=== PATIENT | female | born 1995 | race Caucasian/White ===

== ENCOUNTER 2018-03-01 04:22 | Inpatient (IN) | payer OTHER ==
[~2018-03-01] VITALS: Ht 177.8 cm; Wt 63.5 kg
[2018-03-01] MEDS ORDERED: ACETAMINOPHEN 325 MG TABLET ONE (05:14)
[2018-03-01] MEDS ORDERED: DEXAMETHASONE 4 MG TABLET ONE (05:14)
[2018-03-01] MEDS ORDERED: ACETAMINOPHEN 325 MG TABLET PO ONE (05:30)
[2018-03-01] MEDS ORDERED: DEXAMETHASONE 4 MG TABLET PO ONE (05:30)
[2018-03-01 05:32] LABS: MEAN CORPUSCULAR HEMOGLOBIN 29.1 pg (27.0-34.8); MEAN CORPUSCULAR HGB CONC 33.2 g/dL (32.4-35.8); MEAN CORPUSCULAR VOLUME 87.5 fL (80-100); MEAN PLATELET VOLUME 9.2 fL (7.4-10.4); PLATELET COUNT 197 x10^3/uL (130-400); RED BLOOD COUNT 4.99 x10^6/uL (3.82-5.3); RED CELL DISTRIBUTION WIDTH 13.5 % (9.6-15.2)
[2018-03-01 05:38] LABS: ALANINE AMINOTRANSFERASE 406 U/L (12-78); ALBUMIN 3.9 g/dL (3.4-5.0); ANION GAP 8 mmol/L (5-15); CALCIUM 9.3 mg/dL (8.5-10.1); CHLORIDE 109 mmol/L (98-107); CREATININE 0.97 mg/dL (0.55-1.02)
[2018-03-01 05:42] LABS: ALKALINE PHOSPHATASE 170 U/L (45-117); BILIRUBIN,TOTAL 0.6 mg/dL (0.2-1.0); TOTAL PROTEIN 8.7 g/dL (6.4-8.2)
[2018-03-01] MEDS ORDERED: OMNIPAQUE 350 MG/ML, 100ML BOTTLE ONE (06:05)
[2018-03-01 06:29] LABS: MD YES
[2018-03-01 06:32] LABS: EOS#(MANUAL) 0.11 x10^3/uL (0.0-0.8); EOS% (MANUAL) 1 % (1-7); LYMPH#(MANUAL) 3.31 x10^3/uL (1-6.1); LYMPHS% (MANUAL) 29 % (22-44); MONOS#(MANUAL) 1.25 x10^3/uL (0.3-2.7); MONOS% (MANUAL) 11 % (2-9); NRBC % (MANUAL) 1 % (0-1); REACTIVE LYMPHS # (MANUAL) 2.39 x10^3/uL (0-0); SEG#(MANUAL) 4.33 x10^3/uL (1.8-8); SEGS% (MANUAL) 38 % (42-75)
[2018-03-01 06:37] LABS: MICROSCOPIC NOT IND
[2018-03-01 06:37] LABS: <PLATELET ESTIMATE> ADEQUATE; <PLT MORPHOLOGY> NORMAL PLT MORPH; <RBC MORPHOLOGY> NORMAL
[2018-03-01 06:38] LABS: REACTIVE LYMPHS % (MANUAL) 21 % (0-0)
[2018-03-01 06:40] LABS: CULTURE INDICATED? NO
[2018-03-01 06:41] LABS: HCG UR SG > 1.045 (1.003-1.030)
[2018-03-01] MEDS ORDERED: AMPICILLIN/SULBACTAM 3 GM in SODIUM CHLORIDE 0.9% 100 ML IVPB ONE (08:00)
[2018-03-01] MEDS ORDERED: PIPERACILLIN/TAZO/PMX 3.375GM 50 ML IV SCH (09:30)
[2018-03-01] MEDS ORDERED: ONDANSETRON 2MG/ML, 2ML IVPush PRN (09:30)
[2018-03-01] MEDS ORDERED: ACETAMINOPHEN 650 MG SUPP PR PRN (10:00)
[2018-03-01] MEDS ORDERED: AMPICILLIN/SULBACTAM 3 GM in SODIUM CHLORIDE 0.9% 100 ML IV SCH (10:00)
[2018-03-01] MEDS ORDERED: KETOROLAC 30 MG/1 ML ONE (10:06)
[2018-03-01] MEDS: KETOROLAC 30 MG/1 ML IV SCH ×3 (10:12→21:49)
[2018-03-01 11:16] VITALS: BP 103/60
[2018-03-01 11:36] LABS: RAPID INFLUENZA A Negative (Negative); RAPID INFLUENZA B Negative (Negative)
[2018-03-01] MEDS: SODIUM CHLORIDE 0.9% 1,000 ML IV SCH ×2 (11:36→18:33)
[2018-03-01] MEDS: DEXAMETHASONE 4 MG/ML, 1ML IVPush SCH ×2 (13:48→21:49)
[2018-03-01 15:06] VITALS: BP 97/62
[2018-03-01] MEDS: AMPICILLIN/SULBACTAM 3 GM in SODIUM CHLORIDE 0.9% 100 ML IV SCH ×2 (15:38→21:27)
[2018-03-01 18:47] VITALS: BP 102/66
[2018-03-02 00:52] VITALS: BP 107/71
[2018-03-02] MEDS: SODIUM CHLORIDE 0.9% 1,000 ML IV SCH ×5 (01:39→23:55)
[2018-03-02] MEDS: AMPICILLIN/SULBACTAM 3 GM in SODIUM CHLORIDE 0.9% 100 ML IV SCH ×4 (02:53→21:09)
[2018-03-02] MEDS: KETOROLAC 30 MG/1 ML IV SCH ×4 (03:45→21:09)
[2018-03-02] MEDS: DEXAMETHASONE 4 MG/ML, 1ML IVPush SCH ×3 (05:35→21:09)
[2018-03-02 05:36] LABS: ALANINE AMINOTRANSFERASE 250 U/L (12-78); ALBUMIN 3.2 g/dL (3.4-5.0); ANION GAP 9 mmol/L (5-15); CALCIUM 8.4 mg/dL (8.5-10.1); CHLORIDE 112 mmol/L (98-107); CREATININE 0.66 mg/dL (0.55-1.02)
[2018-03-02 05:38] LABS: ALKALINE PHOSPHATASE 129 U/L (45-117); BILIRUBIN,TOTAL 0.3 mg/dL (0.2-1.0); TOTAL PROTEIN 7.3 g/dL (6.4-8.2)
[2018-03-02 05:54] LABS: MEAN CORPUSCULAR HEMOGLOBIN 28.6 pg (27.0-34.8); MEAN CORPUSCULAR HGB CONC 32.9 g/dL (32.4-35.8); MEAN CORPUSCULAR VOLUME 87.1 fL (80-100); MEAN PLATELET VOLUME 9.8 fL (7.4-10.4); PLATELET COUNT 202 x10^3/uL (130-400); RED BLOOD COUNT 4.33 x10^6/uL (3.82-5.3); RED CELL DISTRIBUTION WIDTH 13.4 % (9.6-15.2)
[2018-03-02 06:41] LABS: MD YES
[2018-03-02 06:42] LABS: BAND#(MANUAL) 0.24 x10^3/uL; BANDS%(MANUAL) 2 % (0-7); LYMPH#(MANUAL) 2.32 x10^3/uL (1-6.1); LYMPHS% (MANUAL) 19 % (22-44); MONOS#(MANUAL) 0.49 x10^3/uL (0.3-2.7); MONOS% (MANUAL) 4 % (2-9)
[2018-03-02 06:43] LABS: REACTIVE LYMPHS # (MANUAL) 0.73 x10^3/uL (0-0); REACTIVE LYMPHS % (MANUAL) 6 % (0-0); SEG#(MANUAL) 8.42 x10^3/uL (1.8-8); SEGS% (MANUAL) 69 % (42-75)
[2018-03-02 06:44] LABS: <PLATELET ESTIMATE> ADEQUATE; <PLT MORPHOLOGY> NORMAL PLT MORPH; <RBC MORPHOLOGY> NORMAL
[2018-03-02 07:32] VITALS: BP 103/57
[2018-03-02 13:56] VITALS: BP 101/67
[2018-03-02 21:00] VITALS: BP 103/67
[2018-03-03 02:50] VITALS: BP 105/73
[2018-03-03] MEDS: AMPICILLIN/SULBACTAM 3 GM in SODIUM CHLORIDE 0.9% 100 ML IV SCH ×2 (03:01→09:04)
[2018-03-03] MEDS: KETOROLAC 30 MG/1 ML IV SCH ×2 (03:02→09:04)
[2018-03-03] MEDS: DEXAMETHASONE 4 MG/ML, 1ML IVPush SCH (05:07)
[2018-03-03] MEDS: SODIUM CHLORIDE 0.9% 1,000 ML IV SCH (06:28)
[2018-03-03 08:18] VITALS: BP 119/84
[2018-03-03] MEDS ORDERED: AMOX1TAB64 PO (11:30)
[2018-03-03] MEDS ORDERED: [UNRECOGNIZED DRUG - CODE] PO (11:30)
== END 2018-03-03 12:30 | disposition home or self-care (01) | DRG 156 ==
LOC: ED 06:06 → SUATTDRO 09:03 → EDIP 09:58 → 3NE 11:10 → 3WST 03-02 11:45
PROVIDERS: ADMIT Internal Medicine; ATTEND Internal Medicine
DX: J35.8 Other chronic diseases of tonsils and adenoids (principal); J02.9 Acute pharyngitis, unspecified; B27.90 Infectious mononucleosis, unspecified without complication; Z82.49 Family history of ischemic heart disease and other diseases of the circulatory system
CPT/HCPCS: 36415; 70491; 76700; 80053; 81003; 81025; 83690; 83735; 84100; 84703; 85025; 86308; 87081; 87400; 87880; 99285; G0378; J0295; J1100; J1885; Q9967; J7030

== ENCOUNTER 2018-11-09 12:52 | Emergency (ER) | payer OTHER ==
[~2018-11-09] VITALS: Ht 170.2 cm; Wt 70.0 kg
[2018-11-09 12:55] VITALS: BP 111/58
== END 2018-11-09 13:43 | disposition home or self-care (01) ==
LOC: ED 13:32
DX: R56.9 Unspecified convulsions (principal)
CPT/HCPCS: 93005; 99283

== ENCOUNTER 2019-03-06 13:34 | Emergency (ER) | payer OTHER ==
[~2019-03-06] VITALS: Ht 175.3 cm; Wt 73.6 kg
[~2019-03-06 13:34] MED LIST: AMOX1TAB64 PO; CLON0.5T11 PO; ESCI10TA PO; LAMO100T PO; [UNRECOGNIZED DRUG - CODE] PO
[2019-03-06 14:31] VITALS: BP 127/87
[2019-03-06 15:06] LABS: MICROSCOPIC AUTO
[2019-03-06 15:09] LABS: BASOPHILS # (AUTO) 0.03 x10^3/uL (0-0.1); BASOPHILS % (AUTO) 0 % (0-1); EOSINOPHILS # (AUTO) 0.42 x10^3/uL (0-0.4); EOSINOPHILS % (AUTO) 5 % (1-7); LYMPHOCYTES # (AUTO) 1.98 x10^3/uL (1-3.4); LYMPHOCYTES % (AUTO) 22 % (22-44); MD NO; MEAN CORPUSCULAR HEMOGLOBIN 29.4 pg (27.0-34.8); MEAN CORPUSCULAR HGB CONC 32.7 g/dL (32.4-35.8); MEAN CORPUSCULAR VOLUME 89.9 fL (80-100); MEAN PLATELET VOLUME 9.4 fL (7.4-10.4); MONOCYTES # (AUTO) 0.57 x10^3/uL (0.2-0.8); MONOCYTES % (AUTO) 6 % (2-9); NEUTROPHILS # (AUTO) 6.08 x10^3/uL (1.8-6.8); NEUTROPHILS % (AUTO) 67 % (42-75); PLATELET COUNT 298 x10^3/uL (130-400); RED BLOOD COUNT 5.01 x10^6/uL (3.82-5.3); RED CELL DISTRIBUTION WIDTH 12.8 % (9.6-15.2)
[2019-03-06 15:14] LABS: ALANINE AMINOTRANSFERASE 27 U/L (12-78); ANION GAP 6 mmol/L (5-15); CALCIUM 8.9 mg/dL (8.5-10.1); CHLORIDE 106 mmol/L (98-107); CREATININE 0.77 mg/dL (0.55-1.02)
[2019-03-06 15:24] LABS: ALKALINE PHOSPHATASE 80 U/L (45-117); BILIRUBIN,TOTAL 0.7 mg/dL (0.2-1.0); TOTAL PROTEIN 7.9 g/dL (6.4-8.2)
[2019-03-06 15:28] LABS: CULTURE INDICATED? YES
--- NOTE | 2019-03-06 17:06 | NUR ---
APPLICATOR SPRAYER: CALLED FOR ROOM, NO ANSWER
--- NOTE | 2019-03-06 17:15 | NUR ---
SENIOR LINUX ADMINISTRATOR: CALLED FOR ROOM, NO ANSWER
== END 2019-03-06 17:28 | disposition left against medical advice (07) ==
LOC: ED 17:28
DX: F20.9 Schizophrenia, unspecified (principal)
CPT/HCPCS: 36415; 80053; 81001; 82330; 84443; 85025; 87086; 99283